=== PATIENT | female | born 1965 | race Caucasian/White ===

== ENCOUNTER 2020-01-23 13:08 | Inpatient (IN) | payer OTHER ==
[~2020-01-23] VITALS: Ht 167.6 cm; Wt 99.8 kg
[2020-01-23 13:18] VITALS: BP 170/90
[2020-01-23] MEDS ORDERED: HUMULIN 70100 UNIT/2 SUBQ (13:23)
[2020-01-23] MEDS ORDERED: LANTUS SUBQ (13:23)
[2020-01-23 14:08] LABS: ABSOLUTE BASOPHILS 0.1 thou/uL (0.0-0.2); ABSOLUTE EOSINOPHILS 0.1 thou/uL (0.0-0.7); ABSOLUTE MONOCYTES 1.3 thou/uL (0.0-1.2); ABSOLUTE NEUTROPHILS 10.3 thou/uL (1.6-8.1); BASOPHILS 0.6 %; EOSINOPHILS 0.7 %; HEMATOCRIT 34.5 % (37.0-47.0); HEMOGLOBIN 11.4 gm/dL (12.0-15.0); LYMPHOCYTES 7.7 %; MCH 28.8 pg (26.0-34.0); MCHC 33.1 g/dL (28.0-37.0); MCV 87.2 fL (80.0-100.0); MONOCYTES 10.3 %; MPV 9.2 fl. (7.2-11.1); NUCLEATED RBCS 0 /100WBC; PLATELET COUNT* 192 thou/uL (150-400); POLYS 80.7 %; RBC 3.96 mil/uL (4.20-5.00); RDW-CV 14.8 % (10.5-14.5); WBC 12.8 thou/uL (4.0-11.0)
[2020-01-23 14:18] LABS: CREATININE 1.2 mg/dL (0.6-1.3); POTASSIUM 3.2 mmol/L (3.5-5.1)
[2020-01-23 14:30] LABS: APTT 27.5 Seconds (25.0-31.3); INR 1.1; PROTIME 11.3 Seconds (9.20-11.50)
[2020-01-23 14:36] LABS: TOTAL BILIRUBIN 0.7 mg/dL (<0.1-1.0); TOTAL PROTEIN 6.4 g/dL (6.4-8.2)
[2020-01-23 15:14] LABS: INFLUENZA A ANTIGEN Negative (Negative); INFLUENZA B ANTIGEN Negative (Negative)
--- NOTE | 2020-01-23 15:37 | EKG ---
[place] [address] ELECTROCARDIOGRAM REPORT Name: JULIANE DICKERSON Room: [place] [address] ADM IN [facility]#: [id number] Admission: 01/23/20 Attend Phys: Feliberto Saxena, Discharge: Date of : 67 Date of Service: 01/23/20 1334 Report #: [id number] THIS REPORT FOR: //name// 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 : 1965 Requested By: Leticia Stiles Order Number: [id number] MD: Peter Turcios Measurements Intervals [place] Rate: 89 P: 56 UT: 140 QRS: 54 QRSD: 94 T: 196 QT: 383 QTc: 467 Interpretive Statements Sinus rhythm Probable left atrial enlargement Probable anterior infarct, old Abnormal T, consider ischemia, lateral leads Baseline wander in lead(s) II,III,aVR,aVL,aVF,V1,V2,V3 No previous ECG available for comparison Electronically Signed On 01-23-2020 15:37:25 CENTRIFUGAL EXTRACTOR OPERATOR by Peter Turcios [email or web address] <ELECTRONICALLY SIGNED> By: Peter Turcios MD, FACC 01/23/20 1537 1334 1334 Peter Turcios MD, [facility] /EPI
[2020-01-23 16:38] LABS: AMP/METHAMP Negative (Negative); BARBITURATES Negative (Negative); BENZODIAZEPINES Negative (Negative); COCAINE Negative (Negative); METHADONE Negative (Negative); OPIATES Negative (Negative); PCP Negative (Negative); THC Negative (Negative)
[2020-01-23 18:00] VITALS: BP 162/92
[2020-01-23 20:00] VITALS: BP 183/99
[2020-01-24] VITALS: BP 176/97
[2020-01-24 04:00] VITALS: BP 203/114
[2020-01-24 05:21] LABS: HEMATOCRIT 39.4 % (37.0-47.0); HEMOGLOBIN 13.2 gm/dL (12.0-15.0); MCH 29.2 pg (26.0-34.0); MCHC 33.4 g/dL (28.0-37.0); MCV 87.4 fL (80.0-100.0); MPV 9.8 fl. (7.2-11.1); NUCLEATED RBCS 0 /100WBC; PLATELET COUNT* 235 thou/uL (150-400); RBC 4.51 mil/uL (4.20-5.00); RDW-CV 15.1 % (10.5-14.5); WBC 10.8 thou/uL (4.0-11.0)
[2020-01-24 05:39] LABS: CALCIUM 8.3 mg/dL (8.5-10.1); CREATININE 1.3 mg/dL (0.6-1.3)
[2020-01-24 06:37] LABS: ABSOLUTE LYMPHOCYTES 0.4 thou/uL (0.8-5.3); ABSOLUTE MONOCYTES 0.2 thou/uL (0.0-1.2); ABSOLUTE NEUTROPHILS 10.2 thou/uL (1.6-8.1); ANISOCYTOSIS 1+; PLATELET ESTIMATE ADEQUATE; POIKILOCYTOSIS 1+
[2020-01-24 08:00] VITALS: BP 117/92
--- NOTE | 2020-01-24 10:21 | CON ---
[address] [address] CONSULTATION Name: JULIANE DICKERSON Room: [address] IN .R.#: [id number] Admission: 01/23/20 Attend Phys: Feliberto Saxena MD Discharge: Date of : 67 Report #: [id number] THIS REPORT FOR: //name// cc: RYLAND Sams family physician/PCP RYLAND - No family physician/PCP ~ DATE OF SERVICE: 01/23/2020 CARDIOLOGY CONSULTATION HISTORY OF PRESENT ILLNESS: The patient is a 54-year-old white female who I was asked to see in the hospital today after she complained of being short of breath. The patient has no previous history of heart disease. She has had no previous cardiac evaluation. She is not very active at this time. She notes that about a year ago, she was admitted to [facility] with cellulitis of her right leg. She was hospitalized at that time. Recently, she again noticed swelling and redness of her right lower extremity. She then noticed that she developed a sore on the dorsum of her right hand, following a cat bite. She noticed a fever. She has noticed some increased shortness of breath and cough. She came to the Emergency Room today and was admitted for further evaluation and treatment. She denies any heaviness of chest. She denied any palpitation or syncope. PAST MEDICAL HISTORY: She has had ear surgery, diabetes and hypertension. MEDICATIONS: Her only current medication include insulin. She used to be on lisinopril, which she discontinued because of dizzy spells. She does use an inhaler. ALLERGIES: She has no known drug allergies. FAMILY HISTORY: Her grandmother had heart disease. SOCIAL HISTORY: She is . She and her live in [place], [place]. She used to smoke one-half pack of cigarettes a day, now about 2 cigarettes a day. No alcohol abuse. REVIEW OF SYSTEMS: She has no history of stroke, liver disease, kidney disease, cancer, chronic skin condition, psychiatric illness. She does wear glasses. PHYSICAL EXAMINATION: GENERAL: Middle-aged female, appeared in no acute distress. VITAL SIGNS: She had a blood pressure of 170/90, pulse is 90. She was afebrile. HEENT: She was anicteric. Conjunctivae are pink. [place] [address] CONSULTATION Name: JAYLAJULIANE LATONYA Room: [address]#: [id number] Admission: 01/23/20 Attend Phys: Feliberto Saxena MD Discharge: Date of : 67 Report #: [id number] CHEST: Decreased breath sounds at bases. CARDIOVASCULAR: Regular rate and rhythm. No significant murmur. ABDOMEN: Soft. EXTREMITIES: Had 1+ pitting edema. The right lower extremity was erythematous and warm to touch. LABORATORY DATA: Her workup in the Emergency Room, sodium 137, potassium 3.2, creatinine 1.2, glucose 110. SGOT 60, SGPT 86, alkaline phosphatase 171. Troponin 0.06. BNP 18,619. D-dimer 4.0. White blood cell count 12.8, hemoglobin 11.4. Her COVID antigen stat test had none detected. X-rays, she had portable chest x-ray in the Emergency Room that shows cardiomegaly, no pulmonary edema. IMPRESSION AND RECOMMENDATIONS: 1. Cellulitis. Recommend antibiotics. 2. Diastolic heart failure. Recommend Lasix. I would check an echocardiogram. 3. Recent cat bite of her hand with obvious infection. 4. Chronic obstructive pulmonary disease. 5. Tobacco abuse. 6. Diabetes. 7. Hypertension. The patient cannot tolerate lisinopril in the past. I would recommend starting an ARB. 8. Elevated liver function studies. <ELECTRONICALLY SIGNED> By: Peter Turcios MD, FACC 01/24/20 1021 1627 [id number] Turcios MD, FACC /nt
[2020-01-24 12:00] VITALS: BP 150/90
--- NOTE | 2020-01-24 13:00 | NUR ---
SPOKE WITH PT.ON PHONE. SHE IS COVID NEG. PLAN IS FOR HER TO BE MOVED TO TELE UNIT. SHE SAID SHE LIVES WITH HER S.O.,JERRELL. SHE IS UNEMPLOYED AND PT.PAY. MED.ASSIST WILL SCREEN HER TODAY. NO USE OF DME. NO HX OF HH OR SNF. PLAN IS TO RETURN HOME AT DISCHARGE. CM TO PROVIDE COMMUNITY RESOURCE INFORMATION TO PT.AND SAFETY NET CLINICS.
--- NOTE | 2020-01-24 14:11 | NUR ---
WOUND NURSE: PATIENT SEEN TO ASSIST PHYSICIAN WITH WOUND VAC PLACEMENT. DR. NY STATES OK WITH 125MMHG CONTINUOUS NEG PRESSURE AND VERAFLOW WITH BACITRACIN [id number] UNITS IN 500 ML NS, 20 ML DWELL Q 6 HOURS. WOUND VAC PLACED ON 2 OPEN INCISIONS ON THE DORSAL & LATEAL FOOT OPENINGS. TENDON PROTECTED WITH VERSAFOAM UNDER GRANUFOAM TO TENDON ON DORSAL FOOT WOUND. GRANUFOAM PLACED ON LATERAL OPEN INCISION. FOOT WRAPPED WITH KERLEX ROLL GAUZE UNDER LIGHT STEFANIE WRAP. THIS WAS TOLERATED WELL BY THE PATIENT. THE PLAN IS TO LEAVE IN PLACE UNTIL THURSDAY, THEN DR. NY TO RE-EVALUATE THE WOUNDS AND CONSIDER TRANSITIONING TO HOME WITH HOME WOUND VAC. PATIENT WAS FULL INSTRUCTED ON NUTRITION, POTENTIAL COMPLICATIONS, AND MEASURES TO PROMOTE HEALING WHICH INCLUDES OFFLOADING FOOT. PATIENT STATES SHE UNDERSTANDS AND AGREES WITH INSTRUCTIONS. BOTH OPEN INCISIONS CONTAINS PARTIAL TISSUE NECROSIS. EXPOSED VIABLE TENDON IS PRESENT IN THE DORSAL WOUND. LATERAL ANKLE HAS CLOSED INCISON WITH INTACT NATALIE. THERE ARE PARTIAL CLOSURE OF REMAINING INCISIONS ALONG THE DORSAL AND MEDIAL FOOT. WITH IS REDNESS, WARMTH, AND INDURATION ASSOCIATED WITH THIS FOOT. PAIN IS DENIED BY PATIENT WHO REPORTS NEUROPATY . DORSAL FOOT WOUND ALSO WITH EXPOSED BONE PRESENT.
--- NOTE | 2020-01-24 14:58 | NUR ---
WOUND NURSE: PATIENT SEEN TO ADDRESS WOUNDS ON RIGHT POSTERIOR HAND PRESENTS A SHALLOW CIRCIFORM LESION MEASURING 1.2 X 1.2 X 0.2 CM AND CONTAINING THIN LAYER OF YELLOW EXUDATE IN THE WOUND BED CONTAINING RED NONGRANULATING TISSUE. PATIENT ALSO WITH 2ND TOE OF RIGHT FOOT WHICH IS HAMMER TOE AND SMALL DRY WOUND MEASURING 0.3 X 0.3 X 0.1 CM AND SURROUNDED BY CALLOUS AND SCANT AMOUNT OF DRY YELLOW DRAINAGE PRESENT. ALSO WITH REDNESS, SWELLING AND WARMTH PRESENT ON RIGHT LOWER EXTREMITY -- NO ASSOCIATED OPEN WOUNDS IDENTIFIED. RIGHT HAND WAS CLEANSED WITH NORMAL SALINE AND GAUZE. APPLIED AQUACEL AG UNDER BORDERED FOAM. HAND WAS WRAPPED USING COBAN AT PATIENT'S REQUEST OVER HER CONCERN OF DRESSING NOT STAYING IN PLACE. PAINTED THE HAMMER TOE LESION WITH BETADINE SWAB. APPLIED SINGLE LAYER TUBIGRIP TO BLE FOR EDEMA CONTROL. PEDAL PULSES WERE PALPABLE WITH CAPILLARY REFILL < 3 SECONDS. PATIENT WAS INSTRUCTED ON MEASURES TO PROMOTE HEALING AND AVOID COMPLICATIONS. PATIENT STATED SHE UNDERSTANDS.
--- NOTE | 2020-01-24 15:17 | 2DMMODE ---
[place] [address] 2 D/M-MODE ECHOCARDIOGRAM Name: JULIANE DICKERSON Room: [address] IN [facility]#: [id number] Admission: 01/23/20 Attend Phys: Feliberto Saxena, Discharge: Date of : 67 Date of Service: 01/24/20 1516 Report #: [id number] THIS REPORT FOR: cc: FAM - No family physician/PCP FAM - No family physician/PCP Bj Bahena MD [facility] ~ APPROVED REPORT Study performed: 01/24/2020 13:50:24 EXAM: Comprehensive 2D, Doppler, and color-flow Echocardiogram Patient Location: In-Patient Room #: 103 Status: routine BSA: 2.08 HR: 94 bpm BP: 150/90 mmHg Rhythm: NSR Other Information Study Quality: Good Indications Congestive Heart Failure Dyspnea 2D Dimensions IVSd: 15.85 (7-11mm) LVOT Diam: 22.23 (18-24mm) LVDd: 52.66 mm PWd: 11.91 (7-11mm) Ascending Ao: 35.84 (22-36mm) LVDs: 31.93 (25-40mm) Aortic Root: 33.04 mm Volumes Left Atrial Volume (Systole) LA ESV Index: 44.90 mL/m2 Aortic Valve AoV Peak Jordan.: 1.88 m/s AO Peak Gr.: 14.17 mmHg LVOT Max P.42 mmHg AO Mean Gr.: 7.43 mmHg LVOT Mean P.76 mmHg LVOT Max V: 1.16 m/s AO V2 VTI: 30.57 cm LVOT Mean V: 0.76 m/s ALIVIA (VTI): 2.90 cm2 LVOT V1 VTI: 22.81 [place] [address] 2 D/M-MODE ECHOCARDIOGRAM Name: JULIANE DICKERSON Room: [address] IN [facility] [place] [facility].#: [id number] Admission: 01/23/20 Attend Phys: Feliberto Saxena, Discharge: Date of : 67 Date of Service: 01/24/20 1516 Report #: [id number] Mitral Valve E/A Ratio: 1.12 MV Decel. Time: 211.34 ms MV E Max Jordan.: 1.41 m/s MV PHT: 61.29 ms MVA (PHT): 3.59 cm2 TDI E/Lateral E': 15.67 E/Medial E': 20.14 Medial E' Jordan.: 0.07 m/s Lateral E' Jordan.: 0.09 m/s Pulmonary Valve PV Peak Jordan.: 1.14 m/s PV Peak Gr.: 5.20 mmHg Tricuspid Valve RAP Estimate: 5.00 mmHg TR Peak Gr.: 44.21 mmHg RVSP: 49.00 mmHg PA Pressure: 49.00 mmHg Left Ventricle The left ventricle is normal size. There is normal LV segmental wall motion. Mild concentric left ventricular hypertrophy. Left ventricular systolic function is normal. LVEF is 60-65%. Grade I - abnormal relaxation pattern. Right Ventricle The right ventricle is normal size. The right ventricular systolic function is normal. Atria Left atrium is moderately dilated. Right atrium is mildly dilated. Aortic Valve The aortic valve is normal in structure. No aortic regurgitation is present. There is no aortic valvular stenosis. Mitral Valve The mitral valve is normal in structure. Trace mitral regurgitation. No evidence of mitral valve stenosis. Tricuspid Valve The tricuspid valve is normal in structure. Mild tricuspid regurgitation. Moderate pulmonary hypertension. The RVSP is 45-50 [place] [address] 2 D/M-MODE ECHOCARDIOGRAM Name: JULIANE DICKERSON LATONYA Room: [address]#: [id number] Admission: 01/23/20 Attend Phys: Feliberto Saxena, Discharge: Date of : 67 Date of Service: 01/24/20 1516 Report #: [id number]. Pulmonic Valve The pulmonary valve is normal in structure. Trace pulmonic regurgitation. Great Vessels The aortic root is normal in size. IVC is normal in size and collapses >50% with inspiration. Pericardium Mild circumferential pericardial effusion. No echo indications of pericardial tamponade. <Conclusion> The left ventricle is normal size. Mild concentric left ventricular hypertrophy. Left ventricular systolic function is normal. LVEF is 60-65%. Grade I - abnormal relaxation pattern. There is normal LV segmental wall motion. Right atrium is mildly dilated. Trace mitral regurgitation. Mild tricuspid regurgitation. Moderate pulmonary hypertension. The RVSP is 45-50 mmHg. Mild circumferential pericardial effusion. No echo indications of pericardial tamponade. <ELECTRONICALLY SIGNED> By: Bj Bahena MD, FACC 01/24/20 1516 151 1516 Bj Bahena MD, FACC /INF
[2020-01-24 17:33] VITALS: BP 169/93
--- NOTE | 2020-01-24 17:43 | NUR ---
PT TRANSFERED FOR [facility]. HAIR STYLIST IN PLACE. UP AD LINH WITH STEADY GAIT. PT VERY RESTLESS AND NOT ABLE TO SIT STILL.
[2020-01-24 20:00] VITALS: BP 176/93
[2020-01-25] VITALS: BP 173/92
[2020-01-25 03:06] LABS: GLYCOHEMOGLOBIN (HGB A1C) 7.8 % (4.8-5.6)
[2020-01-25 04:00] VITALS: BP 180/96
--- NOTE | 2020-01-25 06:45 | NUR ---
ASSUMED PATIENT CARE AT 1900. ASSESSMENTS COMPLETED CHARTED. CARDIAC MONITORING IN PLACE. NO BOWEL MOVEMENT THIS SHIFT. FALL PRECAUTIONS IN PLACE FOR PATIENT SAFETY. BED LOCKED AND IN LOWEST POSITION. HOURLY ROUNDING IN PLACE FOR PATIENT SAFETY. CLWR.
[2020-01-25 08:30] VITALS: BP 181/100
--- NOTE | 2020-01-25 11:48 | NUR ---
ASSUMED CARE OF PT AT 0730. PT SITTING IN RECLINER WAITING FOR BREAKFAST. A&0X4, DENIES ANY PAIN OR SHORTNESS OF BREATH AT REST. PT ANXIOUS AND IRRITABLE. TRACING SR ON THE BANKING SPECIALIST. ON RA SAT MID 90'S. BLOOD PRESSURE ELEVATED AT 181/100- CARDIOLOGY HERE TO SEE PT, [place]AN INCREASED TO 50MG PO DAILY- PT RECEIVING IV ROCEPHIN. PT UP AD LINH IN ROOM. PT GOAL FOR TODAY IS STRICT I/O, COMPLIANCE WITH NURSING CARES, ORTHO AND CARDIOLOGY CONSULT IN PLACE, MAINTAIN SBP LESS THAN 160 AND DBP LESS THAN 60 AND OBTAIN URINALYSIS. AM ASSESSMENT CHARTED. MEDICATIONS PER APR. PT REPOSITIONS SELF WITH REMINDERS. HOURLY ROUNDING OBSERVED. BED IN LOW POSITION. CALL LIGHT WITHIN REACH. WILL CONTINUE PLAN OF CARE.
--- NOTE | 2020-01-25 13:46 | NUR ---
PT AT BEDSIDE AND PT STATING, "I AM GOING HOME AND WILL TAKE CARE OF WHAT I NEED TO AT HOME, MY LEGS ARE NOT ANY BETTER". DR PRIETO ON FLOOR AND AND THIS RN IN TO SPEAK WITH PT. PT COMMUNICATES UNDERSTANDING OF EDUCATION GIVEN AND INSISTS ON GOING HOME. PT SIGNED AMA PAPERWORK. IV AND METAL MACHINE OPERATOR REMOVED. PT COMMUNICATES UNDERSTANDING OF RISKS OF LEAVING AMA. PT LEFT WITH BELONGINGS AND .
--- NOTE | 2020-01-25 13:58 | NUR ---
Pt opted to leave [facility] coupons printed for Pt's scripts per they are able to afford the meds.
== END 2020-01-25 13:45 | disposition left against medical advice (07) | DRG 871 ==
LOC: M.ERS 13:08 → M.TBA-ER 15:08 → M.ORTHSURG 17:20 → M.2W 01-24 15:00
PROVIDERS: Nurse Practitioner Family; ADMIT Internal Medicine; ATTEND Internal Medicine
DX: A41.9 Sepsis, unspecified organism (principal); I50.31 Acute diastolic (congestive) heart failure; L03.115 Cellulitis of right lower limb; I31.3 Pericardial effusion (noninflammatory); E11.65 Type 2 diabetes mellitus with hyperglycemia; J44.9 Chronic obstructive pulmonary disease, unspecified; S60.511A Abrasion of right hand, initial encounter; E88.09 Other disorders of plasma-protein metabolism, not elsewhere classified; I87.2 Venous insufficiency (chronic) (peripheral); I27.20 Pulmonary hypertension, unspecified; I11.0 Hypertensive heart disease with heart failure; Z53.29 Procedure and treatment not carried out because of patient's decision for other reasons; S90.414A Abrasion, right lesser toe(s), initial encounter; X58.XXXA Exposure to other specified factors, initial encounter; Z20.828 Contact with and (suspected) exposure to other viral communicable diseases; Y93.89 Activity, other specified; Y92.89 Other specified places as the place of occurrence of the external cause; Y99.8 Other external cause status; W55.03XA Scratched by cat, initial encounter

== ENCOUNTER 2020-04-23 21:19 | Emergency (ER) | payer OTHER ==
[~2020-04-23] VITALS: Ht 167.6 cm; Wt 99.8 kg
[~2020-04-23 21:19] MED LIST: HUMULIN 70100 UNIT/2 SUBQ; LANTUS SUBQ
[2020-04-23 21:56] LABS: URINE BILIRUBIN NEGATIVE (Negative); URINE BLOOD 2+ (Negative); URINE CLARITY CLEAR; URINE COLOR YELLOW; URINE GLUCOSE-RANDOM 2+ (Negative); URINE KETONES NEGATIVE (Negative); URINE LEUKOCYTES-REFLEX NEGATIVE (Negative); URINE NITRITE-REFLEX NEGATIVE (Negative); URINE PROTEIN 3+ (Negative); URINE SPECIFIC GRAVITY 1.025 (1.005-1.030); URINE UROBILINOGEN 0.2 E.U./dl (0.2-1.0)
[2020-04-23 22:03] LABS: HYALINE CASTS 0-3 Few /LPF (None Seen); SQUAMOUS >10 Many /LPF (0-3)
[2020-04-23 22:07] LABS: CRYSTALS None Seen /LPF (None Seen); MUCUS None Seen strn/LPF (None Seen); URINE RBC 3-10 Few /HPF (0-2)
[2020-04-23 22:10] LABS: URINE WBC-REFLEX 0-5 Rare /HPF (0-5)
[2020-04-23 22:17] LABS: AMP/METHAMP POSITIVE (Negative); BARBITURATES Negative (Negative); BENZODIAZEPINES Negative (Negative); COCAINE Negative (Negative); METHADONE Negative (Negative); OPIATES Negative (Negative); PCP Negative (Negative); THC Negative (Negative)
[2020-04-23 22:40] LABS: ABSOLUTE BASOPHILS 0.1 thou/uL (0.0-0.2); ABSOLUTE EOSINOPHILS 0.1 thou/uL (0.0-0.7); ABSOLUTE MONOCYTES 0.7 thou/uL (0.0-1.2); ABSOLUTE NEUTROPHILS 7.6 thou/uL (1.6-8.1); BASOPHILS 0.8 %; EOSINOPHILS 1.3 %; HEMATOCRIT 38.7 % (37.0-47.0); HEMOGLOBIN 12.7 gm/dL (12.0-15.0); LYMPHOCYTES 10.8 %; MCH 29.3 pg (26.0-34.0); MCHC 32.7 g/dL (28.0-37.0); MCV 89.5 fL (80.0-100.0); MONOCYTES 7.5 %; NUCLEATED RBCS 0 /100WBC; PLATELET COUNT* 223 thou/uL (150-400); POLYS 79.6 %; RBC 4.32 mil/uL (4.20-5.00); RDW-CV 15.8 % (10.5-14.5); WBC 9.5 thou/uL (4.0-11.0)
[2020-04-23 23:23] LABS: CALCIUM 8.9 mg/dL (8.5-10.1); CREATININE 1.2 mg/dL (0.6-1.3); POTASSIUM 3.7 mmol/L (3.5-5.1)
[2020-04-23 23:28] LABS: ALBUMIN 2.5 g/dL (3.4-5.0); TOTAL BILIRUBIN 0.6 mg/dL (<0.1-1.0); TOTAL PROTEIN 6.8 g/dL (6.4-8.2)
[2020-04-23] MEDS ORDERED: HUMULIN 70100 UNIT/2 SUBQ (23:58)
[2020-04-23] MEDS ORDERED: LANTUS SUBQ (23:58)
[2020-04-23] MEDS ORDERED: KLOR-CON 1010 MEQ PO (23:59)
[2020-04-23] MEDS ORDERED: LASIX 40 MG TAB40 M2 PO (23:59)
[2020-04-24 00:55] VITALS: BP 208/99
--- NOTE | 2020-04-24 13:47 | EKG ---
[place] [address] ELECTROCARDIOGRAM REPORT Name: JULIANE DICKERSON Room: [facility]#: [id number] Admission: 04/23/20 Attend Phys: Discharge: 04/24/20 Date of : 67 Date of Service: 04/23/202139 Report #: [id number] THIS REPORT FOR: //name// [facility] ED Test Date: 2020-04-23 Test Time: 21:40:29 Pat Name: JULIANE DICKERSON Department: Room: Gender: F Commercial Collections Specialist: OPAL : 1965 Requested By: Portia Ahn Order Number: [id number] Reading MD: Peter Turcios Measurements Intervals [place] Rate: 98 P: 39 PA: 155 QRS: 62 QRSD: 96 T: 229 QT: 384 QTc: 491 Interpretive Statements Sinus rhythm Probable left atrial enlargement Abnormal R-wave progression, late transition Nonspecific T abnormalities, lateral leads Borderline prolonged QT interval Baseline wander in lead(s) V5 Compared to ECG 01/23/2020 13:34:37 T-wave abnormality still present Electronically Signed On 04-24-2020 13:47:13 RESOURCE PROTECTION SPECIALIST by Peter Turcios [email or web address] <ELECTRONICALLY SIGNED> By: Peter Turcios MD, FACC 04/24/20 1347 39 39 Peter Turcios MD, FAC /EPI
== END 2020-04-24 00:58 | disposition home or self-care (01) ==
LOC: M.ERS 21:19
PROVIDERS: Emergency Medicine
DX: J81.1 Chronic pulmonary edema (principal); E11.65 Type 2 diabetes mellitus with hyperglycemia; Z20.822 Contact with and (suspected) exposure to COVID-19; J44.9 Chronic obstructive pulmonary disease, unspecified; I10 Essential (primary) hypertension